=== PATIENT | male | born 2000 | race African-American/Black ===

== ENCOUNTER 2018-07-13 23:47 | Emergency (ER) | payer OTHER ==
[~2018-07-13] VITALS: Ht 188 cm; Wt 77.1 kg
[2018-07-13 23:48] VITALS: BP 149/92
--- NOTE | 2018-07-14 01:23 | PHYS DOC ---
Past Medical History Past Medical History: No Pertinent History Past Surgical History: No Surgical History Alcohol Use: None Drug Use: None Adult General Chief Complaint Chief Complaint: UPPER EXTREMITY INJURY HPI HPI 17-year-old male presents to ER for complaints of right wrist pain. Patient reports he was training when he fell causing his right arm to twist underneath his chest. He denies striking his head or having any head, neck, or back pain. He reports he has taken [id number] pain medication for pain with some improvement in discomfort. He denies any other injury during the fall. Review of Systems Review of Systems HENT: Denies head pain Musculoskeletal: Denies back/neck pain. Report rt wrist pain Integument: Denies abrasions/bruising Neurologic: Denies focal weakness or sensory changes [] All other systems were reviewed and found to be within normal limits, except as documented in this note. Allergies Allergies Allergies Coded Allergies Type Severity Reaction Last Updated Verified No Known Drug Allergies 07/13/18 No Physical Exam Physical Exam Constitutional: Well developed, well nourished, no acute distress, non-toxic appearance. [] HENT: Normocephalic, atraumatic, oropharynx moist, nose normal. [] Eyes: Pupils equal, conjunctiva normal, no discharge. [] Neck: Normal range of motion, no tenderness, supple, no stridor. [] Cardiovascular: Heart rate regular Lungs & Thorax: Resp. equal/nonlabored Skin: Warm, dry Extremities: Tender on palp. rt posterior/anterior wrist- no deformity/visible injury. No swelling. 2+ bilat radial. No cyanosis, no clubbing, ROM intact does have c/o increased pain with ROM Neurologic: Alert and oriented X 3, normal motor function, normal sensory function, no focal deficits noted. [] Psychologic: Affect normal, judgement normal, mood normal. [] Current Patient Data Vital Signs Vital Signs Date Time Temp Pulse Resp B/P (MAP) Pulse Ox O2 Delivery O2 Flow Rate FiO2 07/13/18 23:48 98.1 70 14 149/92 (111) 99 Room Air 98.1 EKG EKG [] Radiology/Procedures Radiology/Procedures [] Course & Med Decision Making Course & Med Decision Making Pertinent Imaging studies reviewed. (See chart for details) 0110: Patient was evaluated in the ER for complaints of right wrist injury. Patient had mechanical fall causing the injury yesterday. Patient had x-ray obtained while in the ER which was reviewed by Dr. Garcia with no obvious acute injury. This was discussed with patient along with plans for wrist splint. Patient reports he had taken [id number] medications for pain prior to arrival. Patient was PMS intact in right upper extremity. Discussed if symptoms persist he should follow-up with orthopedics for reevaluation and further care. Education provided on signs and symptoms to return to ER for an discharge instructions were discussed. Patient advised on use of Tylenol and/or ibuprofen as needed for pain. Patient advised on ice packs to affected area every 3-4 hours. Dragon Disclaimer Dragon Disclaimer This electronic medical record was generated, in whole or in part, using a voice recognition dictation system. Departure Departure Impression: Primary Impression: Sprain of wrist, right Disposition: 01 HOME, SELF-CARE Condition: STABLE Referrals: NO PCP (PCP) CHIDI EAGLE MD Patient Instructions: RICE - Routine Care for Injuries, Wrist Sprain with Rehab -SportsMed Additional Instructions: Tylenol and/or Ibuprofen as directed on container for pain as directed on container. If symptoms persist follow-up with orthopedic doctor for reevaluation and further care. SHELBI MCLAUGHLIN APRN Jul 14, 2018 01:23
--- NOTE | 2018-07-14 08:14 | RAD ---
Right wrist radiograph 07/14/2018 12:50 AM INDICATION: Wrist pain after injury COMPARISON: None available. TECHNIQUE: 3 views the right wrist are provided. FINDINGS: There is no acute fracture or dislocation. Bone mineralization is within normal limits. Joint spaces are maintained. Regional soft tissues are within normal limits. There is no soft tissue gas or osseous erosion. IMPRESSION: No acute fracture or dislocation. Electronically signed by: Shasha Will MD (07/14/2018 8:11 AM) [id number]
== END 2018-07-14 01:28 | disposition home or self-care (01) ==
LOC: ER 23:47
DX: S63.591A Other specified sprain of right wrist, initial encounter (principal); W18.39XA Other fall on same level, initial encounter; Y93.89 Activity, other specified; Y92.89 Other specified places as the place of occurrence of the external cause; Y99.8 Other external cause status
CPT/HCPCS: 29125; 73110; 99283